=== PATIENT | female | born 1955 | race Two or more races ===

== ENCOUNTER → 2024-04-20 | Outpatient (CLI) | payer MEDICARE, SELFPAY ==
--- NOTE | 2024-04-20 11:30 | XR_ITS ---
Examination: Screening digital mammography, bilateral Computer aided detection 3-D breast Tomosynthesis, bilateral Date and time of exam: April 20, 2024 1141 hours Compared to mammograms dating to June 20, 2018 Indication: Screening Technique: Nonmagnified MLO, CC views of the breasts to been obtained, reconstructed from 3-D Tomosynthesis images. R2 computer aided detection program utilized for evaluation of suspicious masses and/or abnormal calcifications. 3-D Tomosynthesis images obtained. Findings: Scattered areas of fibroglandular density. Benign calcifications. No interval suspicious masses Impression: BI-RADS category II: Benign Findings. Recommend 1 year follow-up mammogram.
== END | disposition home or self-care (01) ==
PROVIDERS: PCP Nurse Practitioner Family; Referring Provider Nurse Practitioner Family; Visit Provider Nurse Practitioner Family
DX: Z12.31 Encounter for screening mammogram for malignant neoplasm of breast (principal); R92.323 Mammographic fibroglandular density, bilateral breasts; R92.1 Mammographic calcification found on diagnostic imaging of breast
CPT/HCPCS: 77063; 77067

== ENCOUNTER → 2024-12-01 | Outpatient (CLI) | payer OTHER, SELFPAY ==
--- NOTE | 2024-12-01 12:40 | XR_ITS ---
Examination: Bone densitometry Date and time of exam:December 01, 2024 1301 hrs. Indications: Menopause age 56 vitamin D one year Technique: Lumbar spine and hip total bone mineralization values of an calculated. Peak reference and age match control results have been displayed. Findings: Hip total bone mineralization is1.007 gm/cm2. This is 0.5 standard deviations above peak reference. This is 1.9 standard deviations above age-matched controls. Lumbar spine total bone mineralization 1.056 gm/cm2 This 0.1 standard deviati above peak reference. This 2.1 standard deviati above age-matched controls Impression: There normal mineralization based on lumbar spine measurements. There normal mineralization based on hip measurements Lumbar mineralization is decreased 4.6% compared with December [id number] mineralization is unchanged compared with June 06, 2022
== END | disposition home or self-care (01) ==
PROVIDERS: PCP Nurse Practitioner Family; Referring Provider Nurse Practitioner Family; Visit Provider Nurse Practitioner Family
DX: M81.0 Age-related osteoporosis without current pathological fracture (principal)
CPT/HCPCS: 77080

== ENCOUNTER 2025-01-11 11:45 | Emergency (ER) | payer MEDICARE, SELFPAY ==
--- NOTE | 2025-01-11 11:51 | EKG_ITS ---
[facility] Test Date: 2025-01-11 Pat Name: MARHSA GUTIERREZ Department: Room: - Gender: Female Minister Assistant: : [id number] Requested By: ED Temporary Provider Order Number: [id number] Reading MD: ED Temporary Provider Measurements Intervals [place] Rate: 67 P: 45 NM: 144 QRS: 30 QRSD: 74 T: 29 QT: 377 QTc: 400 Interpretive Statements SINUS RHYTHM No previous ECG available for comparison /store/[email or web address]/[id number].pdf
[2025-01-11 12:04] VITALS: BP 138/76; PULSE 88; RESP 18; TEMP 36.9; O2SAT 99; BMI 28.1
--- NOTE | 2025-01-11 12:07 | EDRME_ITS ---
Rapid Medical Screening Exam [facility] Arrival date/time: 01/11/25 11:45 69-year-old female with a history of hypertension presents to the emergency room with a chief complaint of 8 out of 10 sternal chest pain that radiates down her left back x 3 days. Patient was sent to the emergency room by her primary care provider. I have greeted and performed a focused initial assessment of this patient. A comprehensive ED assessment and evaluation of the patient, analysis of all test results, and completion of the medical decision making process will be conducted by additional ED providers. Chief Complaint: Chest Pain Time Seen by Provider: 01/11/25 12:00 Vital signs: Vital Signs Temperature 98.5 F 01/11/25 12:04 Pulse Rate 88 01/11/25 12:04 Respiratory Rate 18 01/11/25 12:04 Blood Pressure 138/76 H 01/11/25 12:04 Pulse Oximetry (%) 99 01/11/25 12:04 Oxygen Delivery Method Room Air 01/11/25 12:04 Vital signs reviewed by provider: Yes
--- NOTE | 2025-01-11 12:07 | XR_ITS ---
Examination: PA lateral chest 2 views TECHNIQUE: Upright PA lateral chest 2 views Date and time: January 11, 2025, 12:17 PM, comparison CT chest August 20, 2023 FINDINGS: Again noted pulmonary mass subcarinal, 38 x 40 mm This may be cystic Normal heart size Retrocardiac gastric hernia IMPRESSION: Consider echocardiography follow-up to assess for cystic mass subcarinal described above
[2025-01-11 12:37] LABS: Basophils # (Auto) 0.0 Thou/mm3 (0.0-0.2); Basophils % (Auto) 1 % (0-2.5); Eosinophils # (Auto) 0.1 Thou/mm3 (0.0-0.5); Eosinophils % (Auto) 2 % (0-10); Hematocrit 38.6 % (36.0-46.0); Hemoglobin 13.2 g/dL (12.0-16.0); Immature Granulocytes Auto 0.01 Thou/mm3 (0.00-0.00); Lymphocytes # (Auto) 1.0 Thou/mm3 (1.0-4.8); Lymphocytes % (Auto) 27 % (10-50); Mean Corpuscular HGB Conc 34.2 g/dl (31.0-37.0); Mean Corpuscular Hemoglobin 31.3 pg (25.0-35.0); Mean Corpuscular Volume 92 fL (80-100); Monocytes # (Auto) 0.4 Thou/mm3 (0.0-0.8); Monocytes % (Auto) 12 % (0-12); Neutrophils # (Auto) 2.2 Thou/mm3 (1.8-7.7); Neutrophils % (Auto) 60 % (37-80); Nucleated Red Blood Cell # 0.00 Thou/mm3 (0.00-0.00); Nucleated Red Blood Cell % 0 /100 WBC (0); Platelet Count 195 Thou/mm3 (140-440); RDW Standard Deviation 39.9 fL (36.4-46.3); Red Blood Count 4.22 Miln/mm3 (4.00-5.20); White Blood Count 3.7 Thou/mm3 (3.6-11.0)
[2025-01-11 12:47] LABS: B-Type Natriuretic Peptide 51 pg/mL (0-100)
[2025-01-11 12:49] LABS: Alanine Aminotransferase 20 U/L (10-49); Albumin, Serum 4.3 gm/dL (3.4-4.8); Albumin/Globulin Ratio 1.4 (1.2-2.2); Alkaline Phosphatase 88 U/L (46-116); Anion Gap 8 (7-16); Aspartate Amino Transferase 29 U/L (0-34); BUN/Creatinine Ratio 23 Ratio (12-20); Bilirubin,Total 0.5 mg/dL (0.3-1.2); Blood Urea Nitrogen 14 mg/dL (9-23); Calcium 9.6 mg/dL (8.3-10.6); Calcium (Corrected) 9.6 mg/dL (8.5-10.1); Carbon Dioxide 27.0 mMol/L (20.0-31.0); Chloride 97 mMol/L (98-107); Creatinine (Component) 0.6 mg/dL (0.6-1.3); Estimated Creatinine Clearance 98.6 mL/min (>60); Globulin 3.0 gm/dL (2.3-3.5); Glucose 142 mg/dL (74-106); Magnesium 1.7 mg/dL (1.6-2.6); Osmolality,Calculated 267 (275-295); Potassium 4.6 mMol/L (3.4-5.1); Sodium 132 mMol/L (136-145); Total Protein 7.3 gm/dL (5.7-8.2); Troponin I < 0.002 ng/mL (0.0-0.045); eGFR > 60 See Note
[2025-01-11 13:00] LABS: INR 1.0 (0.9-1.3); Partial Thromboplastin Time 26.8 Seconds (22.0-36.0); Prothrombin Time 10.3 Seconds (9.0-12.2)
[2025-01-11 13:14] LABS: Collection Type, Urine Clean Catch
[2025-01-11 13:33] LABS: Bilirubin,Urine Negative (Negative); Blood,Urine Negative (Negative); Clarity,Urine Clear (Clear/Hazy); Color,Urine Colorless (Lt Yel-Yel); Culture Indicated,Urine Not Indicated; Glucose, Urine Negative (Negative); Ketones,Urine Negative (Negative); Leukocyte Esterase,Urine Negative (Negative); Nitrite,Urine Negative (Negative); PH,Urine 7.0 (5.0-7.0); Protein,Urine Negative (Neg - Trace); RBC,Urine 1 /hpf (0-3); Specific Gravity,Urine 1.007 (1.001-1.035); Squamous Epithelial Cell,Urine 1 /hpf (0-5); Urobilinogen,Urine Negative mg/dL (0.0-1.0); WBC,Urine 1 /hpf (0-5)
[2025-01-11 16:40] VITALS: BP 142/82; PULSE 73; RESP 18; TEMP 36.6; O2SAT 99
--- NOTE | 2025-01-11 17:00 | EDNOTE_ITS ---
<Statement entered by Sapphire Bueno MD - 01/12/25 16:02> As co-signing physician, I was present and available for consult prn. I concur with the plan and care as documented by the midlevel provider. ED General RME/HPI General Chief complaint: Chest Pain Stated complaint: CHEST PAIN, L) BACK/ SHOULDER PAIN Time Seen by Provider: 01/11/25 12:00 Arrival date/time: 01/11/25 11:45 CC: Chest pain HPI onset 3 days ago, 8 out of 10 worsening with deep inhalation radiates straight to the back no prior history of similar events denies heavy use of the left hand fall repetitive motion. No other complaints at this time including nausea vomiting diarrhea headache RME / HPI RME / HPI narrative: 01/11/25 11:45 69-year-old female with a history of hypertension presents to the emergency room with a chief complaint of 8 out of 10 sternal chest pain that radiates down her left back x 3 days. Patient was sent to the emergency room by her primary care provider. I have greeted and performed a focused initial assessment of this patient. A comprehensive ED assessment and evaluation of the patient, analysis of all test results, and completion of the medical decision making process will be conducted by additional ED providers. Related Data Home Medications ?Medication ?Instructions ?Recorded ?Confirmed lisinopril 20 mg tablet 20 mg PO QDAY 01/21/1902/19 Allergies Allergy/AdvReac Type Severity Reaction Status Date / Time No Known Allergies Allergy Verified 01/11/25 11:50 Review of Systems Review of Systems Narrative Review of Systems: GEN: No fever, no chills, no weight loss EYES: No discharge, no visual changes, no pain HEENT: No ear pain, no congestion, no sore throat PULM: No shortness of breath, no cough, no congestion CV: No chest pain, no dyspnea on exertion, no palpitations GI: No nausea, no vomiting, no diarrhea, no pain, no constipation : No frequency, no urgency, no dysuria MUSC/SKEL: No joint pain, no back pain SKIN: No rash PSYCH: No hallucinations, no depression HEME/LYMPH: No easy bleeding or bruising tendencies NEURO: No weakness, no headache Past Medical History Past Medical History NEUROLOGIC: Negative Neurological Disorders, Cerebrovascular Accident or Epilepsy CARDIAC: Positive Cardiac Disorders, Hypercholesterolemia and Hypertension; Negative Congestive Heart Failure RESPIRATORY: Negative Chronic Obstructive Pulmonary Disease (COPD) or Asthma GASTROINTESTINAL: Negative Gastrointestinal Disorders GENITOURINARY: Positive Genitourinary Disorders (recurent UTI, bladder lift); Negative Renal Disease REPRODUCTIVE: Positive Previous Pregnancies (3) MUSCULOSKELETAL: Positive Musculoskeletal Disorders and Arthritis ENDOCRINE: Positive Diabetes Mellitus Type 2; Negative Endocrine Disorders, Diabetes Mellitus Type 1, Hyperthyroidism or Hypothyroidism HEMATOLOGIC: Negative Blood Disorders PSYCHO/SOCIAL: Positive Anxiety OTHER HISTORY: Positive Chicken Pox and Measles; Negative Blood Transfusions, Anesthesia Reactions or Cancer Family History FAMILY HISTORY: Positive Family Cardiac Disorders (mother-HTN) and Family Cancer (Mother-pancreas) Social History SMOKING STATUS: Never smoker ED Exam Narrative Physical exam: [General: Not in any acute distress Head normocephalic HEENT: Eyes pupils are PERRLA EOMs are intact mouth pink moist membranes uvula is midline swallow symmetrical subsystems of HEENT are within acceptable limits Neck is supple nontender Chest equal chest rise nontender to palpation Respiratory: Clear to auscultation no wheezes crackles or rubs CV: Rate rhythm is regular no murmurs rubs or clicks Abdomen is distended secondary to body habitus soft nontender no masses positive bowel sounds all 4 quadrants Back: No CVA tenderness no spinous process tenderness from cervical spine thoracic and lumbar spine Skin: Intact no petechiae rash induration ulceration or crepitus Extremities: Moving all extremity against resistance cap refill less than 2 seconds neurosensory intact Neuro: Awake alert oriented x3 Glascow coma 15 no focal deficits] Course Quality Measures none Orders Category Date Time Status EKG (ED ONLY) *Do not use* NOW Care 01/11/25 11:52 Completed EKG (ED Only) Stat Exams 01/11/25 11:51 Draft XR chest 2V Stat Exams 01/11/25 12:07 Completed B-Type Natriuretic Peptide Stat Lab 01/11/25 12:20 Completed CBC Stat Lab 01/11/25 12:20 Completed Comprehensive Metabolic Panel Stat Lab 01/11/25 12:20 Completed Magnesium Stat Lab 01/11/25 12:20 Completed Partial Thromboplastin Time Stat Lab 01/11/25 12:20 Completed Prothrombin Time with INR Stat Lab 01/11/25 12:20 Completed Troponin I Stat Lab 01/11/25 12:20 Completed Urinalysis, C/S if Indicated Stat Lab 01/11/25 13:06 Completed Vital Signs Vital signs: Vital Signs Temperature 98.5 F 01/11/25 12:04 Pulse Rate 88 01/11/25 12:04 Respiratory Rate 18 01/11/25 12:04 Blood Pressure 138/76 H 01/11/25 12:04 Pulse Oximetry (%) 99 01/11/25 12:04 Oxygen Delivery Method Room Air 01/11/25 12:04 Discharge Plan Plan Patient Disposition: HOME (Self Care) Patient condition on transfer: Stable Prescriptions/Referrals Prescriptions/Med Rec: No Action lisinopril 20 mg Tablet 20 mg PO QDAY Referrals: Miri Benz MD [Primary Care Provider] - In 1 week Problem List Clinical Impression: Chest pain Patient/Caregiver Discharge Instructions Education Materials: ED Chest Pain, Uncertain Cause Additional Instructions: Follow-up with your primary care doctor if is worsening symptoms by medications return the emergency room meetly for further evaluation. Print Language: Armenian Stand Alone Forms: [employer] Award Info., Work/School Release, Patient Portal Info Letter PA/SYLVIA Supervising Physician PA/SYLVIA Supervising Physician: Aniket Grant ENP MDM Clinical Information Provided by: patient Medical Records reviewed [facility] Meds/Rx considered, not ordered None Labs/Rad/Tests considered, not ordered None Chronic Illness/Social Conditions which may negatively complicate care or outcome(s)-explain: None or not applicable EKG Interpretation EKG #1: EKG Interpretation: EKG performed at 1240 shows ventricular rate of 67 [place] interval 144 QRS of 74 QTc of 393 is normal sinus rhythm. Labs Lab(s) Interpretation(s): CBC shows no acute leukocytosis anemia thrombocytopenia Coags within except limits CMP shows sodium 132 chloride of 97 glucose of 142 no other significant electrolyte imbalances renal impairment transaminitis or T. bili elevation Troponin is undetectable BNP is within acceptable limits Urine is negative for urinary tract infection Imaging Imaging interpretation: interpreted by [facility] Interpretation(s): Chest x-ray shows a cystic mass that the patient is well aware of that has been monitoring for the past 8 years. Medication Administration(s) none Diagnosis Differential Diagnosis ED Complaint MDM: ACS NC pneumonia
== END 2025-01-11 17:54 | disposition home or self-care (01) ==
PROVIDERS: Nurse Practitioner Family; Emergency Provider Emergency Medicine; PCP Obstetrics & Gynecology
DX: R07.9 Chest pain, unspecified (principal); E78.00 Pure hypercholesterolemia, unspecified; I10 Essential (primary) hypertension
CPT/HCPCS: 36415; 71046; 80053; 81001; 83735; 83880; 84484; 85025; 85610; 85730; 93005; 99283